=== PATIENT | male | born 1990 | race Two or more races ===

== ENCOUNTER 2022-12-11 09:26 | Day surgery (SDC) | payer BC ==
[~2022-12-11] VITALS: Ht 172.7 cm; Wt 90.7 kg
[2022-12-11] MEDS ORDERED: PROPOFOL 200MG/ 20ML VIAL (DIPRIVAN) IV ONE (11:00)
[2022-12-11] MEDS ORDERED: BUPIVACAINE /PF 0.5% 30 ML VIAL ONE (11:00)
[2022-12-11] MEDS ORDERED: DEXAMETHASONE SOD PHOSPHATE 4 MG/ML VIAL ONE (11:00)
[2022-12-11] MEDS ORDERED: KETOROLAC TROMETHAMINE 30 MG VIAL ONE (11:00)
[2022-12-11] MEDS ORDERED: SEVOFLURANE 15 MIN GAS INH ONE (11:00)
[2022-12-11] MEDS ORDERED: ONDANSETRON HCL 4 MG/2 ML VIAL ONE (11:00)
[2022-12-11] MEDS ORDERED: LR 1,000 ML IV.SOLN IV ONE (11:00)
[2022-12-11] MEDS ORDERED: fentaNYL CITRATE/PF 100 MCG/2 ML AMP ONE (11:00)
[2022-12-11] MEDS ORDERED: NS IRRIG SOLN 1000 ML IR ONE (11:00)
[2022-12-11] MEDS ORDERED: MIDAZOLAM HCL 2 MG/2 ML VIAL (VERSED) ONE (11:00)
[2022-12-11] MEDS ORDERED: LIDOCAINE 1% 10 MG/ML, 20 ML MDV ONE (11:00)
[2022-12-11] MEDS ORDERED: MEPERIDINE HCL/PF 25 MG/ML DISP.SYRIN IVP PRN (11:30)
[2022-12-11] MEDS ORDERED: LR 1,000 ML IV SCH (11:30)
[2022-12-11] MEDS ORDERED: HYDROmorphone 1 MG/ML INJ. CARTRIDGE IVP PRN ×2 (11:30)
[2022-12-11] MEDS ORDERED: METOCLOPRAMIDE HCL 10 MG/2 ML VIAL IVP PRN (11:30)
[2022-12-11 14:47] VITALS: BP_SYST 131
== END 2022-12-11 13:50 | disposition home or self-care (01) ==
LOC: SOR 09:26 → SMU 09:27 → SOR 13:50
PROVIDERS: ATTEND Surgery
DX: K60.3 Anal fistula (principal); Z20.822 Contact with and (suspected) exposure to COVID-19
CPT/HCPCS: 87081; 46275; 36415; 88304; 87426; J3490; J1100; J1885; J2001; J3465; J2405; J2704; J3010; J7120

== ENCOUNTER 2023-07-15 11:03 | Day surgery (SDC) | payer BC ==
[~2023-07-15] VITALS: Ht 172.7 cm; Wt 90.7 kg
[~2023-07-15 11:03] MED LIST: METOCLOPRAMIDE HCL 10 MG/2 ML VIAL ONE; MIDAZOLAM HCL/PF 2 MG/2 ML SYRINGE ONE; NS IRRIG SOLN 1000 ML IR ONE; ONDANSETRON HCL 4 MG/2 ML VIAL ONE; PHENYLEPHRINE HCL 10 MG/ML VIAL (NEOSYNEPHRINE) ONE; PROPOFOL 200MG/ 20ML VIAL (DIPRIVAN) IV ONE; SEVOFLURANE 15 MIN GAS INH ONE; WATER FOR IRRIGATION,STERILE 1,000 ML IRRIG.SOLN IR ONE; fentaNYL CITRATE/PF 100 MCG/2 ML AMP ONE
[2023-07-15 11:53] LABS: BASOPHILS % (AUTO) 0.4 % (0.0-2.0); EOSINOPHILS # (AUTO) 0.1 K/uL (0.0-0.4); EOSINOPHILS % (AUTO) 2.3 % (0.0-4.0); HEMATOCRIT 47.1 % (36-54); HEMOGLOBIN 15.9 g/dL (14.0-18.0); LYMPHOCYTES % (AUTO) 34.9 % (20.5-51.5); MEAN CORPUSCULAR HEMOGLOBIN 30 pg (27-31); MEAN CORPUSCULAR HGB CONC 34 % (32-36); MEAN CORPUSCULAR VOLUME 89 fL (79.0-98.0); MONOCYTES # (AUTO) 0.6 K/uL (0.0-1.0); MONOCYTES % (AUTO) 9.7 % (1.7-9.3); NEUTROPHILS % (AUTO) 52.7 % (40.0-70.0); PLATELET COUNT (AUTO) 227 K/uL (130-430); RED BLOOD CELL COUNT(AUTO) 5.26 MIL/uL (4.2-6.2); WHITE BLOOD COUNT (AUTO) 5.8 K/uL (4.8-10.8)
[2023-07-15] MEDS ORDERED: METOCLOPRAMIDE HCL 10 MG/2 ML VIAL ONE ×2 (12:59→13:50)
[2023-07-15] MEDS ORDERED: MEPERIDINE HCL/PF 100 MG/ML VIAL ONE (12:59)
[2023-07-15] MEDS ORDERED: PROPOFOL 200MG/ 20ML VIAL (DIPRIVAN) IV ONE (12:59)
[2023-07-15] MEDS ORDERED: LIDOCAINE 2%, 20 ML MDV ONE (12:59)
[2023-07-15] MEDS ORDERED: ONDANSETRON HCL 4 MG/2 ML VIAL ONE (12:59)
[2023-07-15] MEDS ORDERED: NS IRRIG SOLN 1000 ML IR ONE ×3 (12:59→13:50)
[2023-07-15] MEDS ORDERED: MIDAZOLAM HCL/PF 2 MG/2 ML SYRINGE ONE ×2 (12:59→13:50)
[2023-07-15] MEDS ORDERED: ROCURONIUM BROMIDE 10 MG/ML (ZEMURON) ONE (13:50)
[2023-07-15] MEDS ORDERED: BUPIVACAINE /PF 0.25% 30 ML VIAL INJ ONE (13:50)
[2023-07-15] MEDS ORDERED: SEVOFLURANE 15 MIN GAS INH ONE (13:50)
[2023-07-15] MEDS ORDERED: NEOSTIGMINE METHYLSULFATE 1 MG/ML, 10 ML VIAL ONE (13:50)
[2023-07-15] MEDS ORDERED: SUCCINYLCHOLINE CHLORIDE 20 MG/ML(QUELICIN) ONE (13:50)
[2023-07-15] MEDS ORDERED: PROPOFOL DRIP 10 MG/ML 100ML BOTTLE IV ONE (13:50)
[2023-07-15] MEDS ORDERED: fentaNYL CITRATE/PF 100 MCG/2 ML AMP ONE (13:50)
[2023-07-15] MEDS ORDERED: GLYCOPYRROLATE 0.2 MG/ML VIAL ONE (13:50)
[2023-07-15 13:59] VITALS: O2SAT 100
[2023-07-15] MEDS ORDERED: HYDROmorphone 1 MG/ML INJ. CARTRIDGE IVP PRN (15:00)
[2023-07-15] MEDS ORDERED: HYDROmorphone 2 MG/ML VIAL IVP PRN (15:00)
[2023-07-15] MEDS ORDERED: KETOROLAC TROMETHAMINE 30 MG VIAL IVP PRN (15:00)
[2023-07-15] MEDS ORDERED: LR 1,000 ML IV SCH (15:00)
[2023-07-15] MEDS ORDERED: ONDANSETRON HCL 4 MG/2 ML VIAL IVP PRN (15:00)
[2023-07-15 17:36] VITALS: BP_SYST 130; PULSE 67; RESP 18
== END 2023-07-15 17:10 | disposition home or self-care (01) ==
LOC: SDS 11:03 → SMU 11:04 → SDS 17:10
PROVIDERS: ATTEND Surgery
DX: K60.3 Anal fistula (principal)
CPT/HCPCS: 87081; 46275; 85025; 36415; 88304; J3490 ×2; J2001; J2765; J3465; J2710; J2405; J2370; J2704 ×2; J0330; J3010; J2175